=== PATIENT | male | born 1995 | race Caucasian/White ===

== ENCOUNTER 2019-04-11 09:46 | Emergency (ER) | payer BC, SELFPAY ==
[2019-04-11 09:57] VITALS: BP 129/87; PULSE 88; RESP 16; TEMP 36.7; O2SAT 100
--- NOTE | 2019-04-11 10:20 | ED.URI ---
HPI - URI/Sore Throat General Chief Complaint: Upper Respiratory Infection Stated Complaint: sore throat/swollen tonsils Time Seen by Provider: 04/11/19 10:20 Source: patient and RN notes reviewed History of Present Illness HPI Narrative: Patient is a 23-year-old male that presents the urgent care with complaints of 2-day history of swollen tonsils and sore throat. Denies of any nausea or vomiting but does report fever. Has been using Advil [id number]. No other acute complaints. No acute distress noted. Patient aware the plan of care. Related Data Allergies Allergy/AdvReac Type Severity Reaction Status Date / Time No Known Allergies Allergy Verified 04/11/19 09:56 Review of Systems Review of Systems: Narrative: CONSTITUTIONAL: Denies fever, chills, or sweats. EYES: Denies visual changes, redness, or discharge. ENT: Reports of swollen tonsils and sore throat CARDIOVASCULAR: Denies chest pain, palpitations, or edema. RESPIRATORY: Denies cough or dyspnea. GASTROINTESTINAL: Denies abdominal pain, nausea, vomiting, or diarrhea. GENITOURINARY: Denies dysuria or hematuria. SKIN: Denies rash or itching. MUSCULOSKELETAL: Denies back pain, joint pain, or myalgia. NEUROLOGIC: Denies headache, numbness, or weakness. All other systems reviewed are negative, except as documented in HPI. [facility] Social History Social History Gender identity (if verbalized by the patient): Male Comments At the time of my signature, I reviewed and agree with the nursing past medical, surgical, social, and family history. There is no relevant family history pertinent to the patient complaint. Exam Narrative: Exam Narrative: GENERAL: This is a well-nourished, well-developed patient, in no apparent distress. HEAD: normocephalic, atraumatic. EYES: PERRL. Sclera clear/white. Vision is grossly intact. EARS: External ears normal, auditory canals clear and without drainage, TMs normal without perforation. Hearing grossly intact. NOSE: External nose normal with no obvious nasal discharge, nares without redness, no rhinorrhea. THROAT: Mucous membranes moist, moderate erythema noted posterior oropharynx with mild to moderate bilateral tonsillar edema with bilateral exudate. No ulceration or notable tonsillar abscess NECK: Neck supple, non-tender without lymphadenopathy CARDIOVASCULAR: Regular rate and rhythm without murmurs, gallops, or rubs. RESPIRATORY: Clear to auscultation. Breath sounds equal bilaterally. No wheezes, rales, or rhonchi. SKIN: warm, intact with no suspicious lesions or rash, good texture and turgor. NEURO: awake, alert, and oriented to person, place and time. There were no obvious focal neurologic abnormalities. EXTREMITIES: No clubbing, cyanosis, or edema. Course Vital Signs Vital signs: Vital Signs Temperature 98.0 F 04/11/19 09:57 Pulse Rate 88 04/11/19 09:57 Respiratory Rate 16 04/11/19 09:57 Blood Pressure 129/87 04/11/19 09:57 Pulse Oximetry 100 04/11/19 09:57 Temperature 98.0 F 04/11/19 09:57 Pulse Rate 88 04/11/19 09:57 Respiratory Rate 16 04/11/19 09:57 Blood Pressure 129/87 04/11/19 09:57 Pulse Oximetry 100 04/11/19 09:57 Reviewed MDM - URI/Sore Throat MDM Narrative Medical decision making narrative: Reviewed lab results with the patient. He has aware that his strep swab was positive. Advised him to complete antibiotic regimen as prescribed. Use Tylenol/ibuprofen as needed for fever pain. Increase fluids and rest. Use Claritin and Flonase for postnasal drainage and sinus relief. Use humidifier at night. Make sure to eat and drink with the medication. Follow-up with PCP within 2 to 5 days or for worsening symptoms or failure to improve. Differential Diagnosis Differential diagnosis: Likely upper respiratory infection, otitis media, viral infection, influenza and pharyngitis Lab Data Attestation: I reviewed the patient's lab results.
== END 2019-04-11 10:40 | disposition home or self-care (01) ==
PROVIDERS: Emergency Provider Nurse Practitioner Family
DX: J02.0 Streptococcal pharyngitis (principal)
CPT/HCPCS: 87880; 99213; G0463